=== PATIENT | male | born 1985 | race African-American/Black ===

== ENCOUNTER 2024-01-08 14:59 | Emergency (ER) | payer SELFPAY ==
[~2024-01-08] VITALS: Ht 175.3 cm; Wt 122.5 kg
[2024-01-08 15:11] VITALS: TEMP 98
[2024-01-08] MEDS: IV NS 0.9% 1,000 ML BAG IV ONE (15:50)
[2024-01-08 16:23] LABS: BASOPHILS % (AUTO) 0.2 % (0.0-2.0); HEMATOCRIT 42 % (39-51); HEMOGLOBIN 13.9 g/dL (13.5-17.5); LYMPHOCYTES # (AUTO) 0.7 K/uL (0.8-4.8); LYMPHOCYTES % (AUTO) 9.1 % (20.0-44.0); MEAN CORPUSCULAR HEMOGLOBIN 29 PG (26.0-33.0); MEAN CORPUSCULAR HGB CONC 33 g/dl (31.0-36.0); MEAN CORPUSCULAR VOLUME 88 fL (80-96); MONOCYTES # (AUTO) 0.3 K/uL (0.1-1.30); MONOCYTES % (AUTO) 3.4 % (2.0-12.0); NEUTROPHILS % (AUTO) 87.3 % (43.0-81.0); PLATELET COUNT (AUTO) 328 K/uL (150-450); RED BLOOD CELL COUNT(AUTO) 4.77 MIL/uL (4.5-6.0); RED CELL DISTRIBUTION WIDTH 13.9 % (11.5-15.0)
[2024-01-08 16:30] LABS: CALCIUM, SERUM 8.6 mg/dL (8.5-10.1); CREATININE 1.2 mg/dL (0.6-1.3); POTASSIUM 3.1 mmol/L (3.5-5.1)
[2024-01-08] MEDS ORDERED: POTASSIUM CHLORIDE 20 MEQ TAB.PRT.SR PO ONE (18:01)
[2024-01-08] MEDS: POTASSIUM CHLORIDE 20 MEQ TAB.PRT.SR PO ONE (18:01)
[2024-01-08 18:27] VITALS: BP 128/88; O2SAT 99
== END 2024-01-08 18:28 | disposition home or self-care (01) ==
LOC: ER 15:03
DX: R20.2 Paresthesia of skin (principal); F41.9 Anxiety disorder, unspecified; E87.6 Hypokalemia; R73.03 Prediabetes; F32.A Depression, unspecified
CPT/HCPCS: 99283; 96360; 96361; 85025; 80048; 83036; 36415; J7030